=== PATIENT | female | born 1965 | race Caucasian/White ===

== ENCOUNTER → 2017-05-24 | Outpatient (CLI) | payer OTHER | LOC: FIMAGING 13:15 | PROVIDERS: ATTEND Family Medicine | DX: Z12.31 Encounter for screening mammogram for malignant neoplasm of breast (principal) | CPT/HCPCS: G0202 ==

== ENCOUNTER 2017-08-20 13:18 | Emergency (ER) | payer OTHER ==
--- NOTE | 2017-08-20 13:29 | EDPHY ---
H & P Time Seen by Provider: 08/20/17 13:27 HPI/ROS: Chief Complaint: Abdominal pain HPI: A 51-year-old woman presenting with 1 week of intermittent left-sided abdominal pain. He can 7 days ago in the left back. It radiates down to her vagina into her back at times. She was pain-free on Saturday and Saturday became back Saturday. She was seen by diamond powder mixer yesterday and told they thought it was diverticulitis. She has had some increasing urinary urgency. No burning with urination. It does not hurt to move. She has been having a difficult time finding a position of comfort. No fevers or chills. No cough. Some nausea, no vomiting. No diarrhea. ROS: 10 point Review of Systems is negative except as noted in the HPI. PMH: Total abdominal hysterectomy Social History: No smoking, occasional alcohol, no recreational drug use Family History: non-contributory Physical Exam: Gen: Awake, Alert, uncomfortable appearing HEENT: Nose: no rhinorrhea Eyes: PERRLA, EOMI Mouth: Moist mucosa Neck: Supple, no JVD Chest: nontender, lungs clear to auscultation Heart: S1, S2 normal, no murmur Abd: Soft, no reproducible tenderness, no guarding Back: no CVA tenderness, no midline tenderness Ext: no edema, non-tender Skin: no rash Neuro: CN II-XII intact, Sensation grossly intact, Strength 5/5 in bilateral upper and lower extremities Constitutional: Initial Vital Signs Temperature (C) 37.3 C 08/20/17 13:25 Heart Rate 112 H 08/20/17 13:25 Respiratory Rate 20 08/20/17 13:25 Blood Pressure 154/100 H 08/20/17 13:25 O2 Sat (%) 93 08/20/17 13:25 O2 Delivery Mode Room Air Allergies/Adverse Reactions: amoxicillin Allergy (Verified 08/20/17 13:32) Cephalosporins Allergy (Verified 08/20/17 13:32) procaine [From Novocain] Allergy (Verified 08/20/17 13:32) Home Medications: Medication Instructions Recorded Advair Hfa 115-21 Mcg Inhaler 08/20/17 Benadryl 08/20/17 FLUoxetine 08/20/17 Lunesta 08/20/17 Nasacort 08/20/17 PRILOSEC 08/20/17 Sonata 08/20/17 Valtrex 08/20/17 Ventolin Hfa 08/20/17 Medical Decision Making - Diagnostics Imaging Results: CT scan abdomen pelvis without contrast shows a 2.5 mm left UVJ stone with moderate left hydronephrosis. No other findings. Is interpreted by Dr. Blanco Mo. Imaging: Discussed imaging studies w/ call center director Radiologist ED Course/Re-evaluation: Urinalysis is positive for blood. CBC and chemistry are unremarkable. CT scan shows a 2.5 mm left UVJ stone. Patient has gotten relief your with Toradol. She is tolerating p. o.. Will discharge with follow-up with primary care physician. - Data Points Laboratory Results: Laboratory Results 08/20/17 13:50 08/20/17 13:50 08/20/17 08/20/17 08/20/17 14:15 13:50 13:50 WBC 9.75 10^3/uL H 10^3/uL (3.80-9.50) RBC 4.82 10^6/uL 10^6/uL (4.18-5.33) Hgb 14.8 g/dL g/dL (12.6-16.3) Hct 42.2 % % (38.0-47.0) MCV 87.6 fL fL (81.5-99.8) MCH 30.7 pg pg (27.9-34.1) MCHC 35.1 g/dL g/dL (32.4-36.7) RDW 12.7 % % (11.5-15.2) Plt Count 223 10^3/uL 10^3/uL (150-400) MPV 10.1 fL fL (8.7-11.7) Neut % (Auto) 66.0 % % (39.3-74.2) Lymph % (Auto) 25.1 % % (15.0-45.0) [place] % (Auto) 6.5 % % (4.5-13.0) Eos % (Auto) 1.3 % % (0.6-7.6) Baso % (Auto) 0.7 % % (0.3-1.7) Nucleat RBC Rel Count 0.0 % % (0.0-0.2) Absolute Neuts (auto) 6.43 10^3/uL 10^3/uL (1.70-6.50) Absolute Lymphs (auto) 2.45 10^3/uL 10^3/uL (1.00-3.00) Absolute Monos (auto) 0.63 10^3/uL 10^3/uL (0.30-0.80) Absolute Eos (auto) 0.13 10^3/uL 10^3/uL (0.03-0.40) Absolute Basos (auto) 0.07 10^3/uL 10^3/uL (0.02-0.10) Absolute Nucleated RBC 0.00 10^3/uL 10^3/uL (0-0.01) Immature Gran % 0.4 % % (0.0-1.1) Immature Gran # 0.04 10^3/uL 10^3/uL (0.00-0.10) Sodium 140 mEq/L mEq/L (134-144) Potassium 4.0 mEq/L mEq/L (3.5-5.2) Chloride 105 mEq/L mEq/L (97-110) Carbon Dioxide 23 mEq/l mEq/l (22-31) Anion Gap 12 mEq/L mEq/L (8-16) BUN 9 mg/dL mg/dL (7-23) Creatinine 1.2 mg/dL H mg/dL (0.6-1.0) Estimated GFR 47 Glucose 119 mg/dL H mg/dL (70-100) Calcium 10.0 mg/dL mg/dL (8.5-10.4) Total Bilirubin 1.0 mg/dL mg/dL (0.1-1.4) AST 25 IU/L IU/L (14-46) ALT 37 IU/L IU/L (9-52) Alkaline Phosphatase 76 IU/L IU/L (38-126) Total Protein 7.8 g/dL g/dL (6.3-8.2) Albumin 4.4 g/dL g/dL (3.5-5.0) Lipase 325 IU/L H IU/L (23-300) Urine Color YELLOW Urine Appearance HAZY Urine pH 5.5 (5.0-7.5) Ur Specific [place] 1.025 (1.002-1.030) Urine Protein TRACE H (NEGATIVE) Urine Ketones TRACE H (NEGATIVE) Urine Blood 3+ H (NEGATIVE) Urine Nitrate NEGATIVE (NEGATIVE) Urine Bilirubin NEGATIVE (NEGATIVE) Urine Urobilinogen 0.2 EU EU (0.2-1.0) Ur Leukocyte Esterase NEGATIVE (NEGATIVE) Urine RBC Pending Urine WBC Pending Ur Epithelial Cells Pending Urine Glucose NEGATIVE (NEGATIVE) Medications Given: Discontinued Medications Fentanyl (Sublimaze) 50 mcg IVP EDNOW ONE Stop: 08/20/17 13:45 Last Admin: 08/20/17 13:51 Dose: 50 mcg Sodium Chloride (Ns) 1,000 mls @ 0 mls/hr IV ONCE ONE; Wide Open PRN Reason: Protocol Stop: 08/20/17 13:45 Last Admin: 08/20/17 13:51 Dose: 1,000 mls Ketorolac Tromethamine (Toradol) 15 mg IVP EDNOW ONE Stop: 08/20/17 14:31 Last Admin: 08/20/17 14:36 Dose: 15 mg Ondansetron HCl (Zofran) 4 mg IVP EDNOW ONE Stop: 08/20/17 13:45 Last Admin: 08/20/17 13:51 Dose: 4 mg Departure - Departure Disposition: Home, Routine, Self-Care Clinical Impression: Kidney stone Condition: Good Instructions: Kidney Stones (ED), How to Strain Your Urine (ED) Additional Instructions: May take ibuprofen 600 mg 3 times a day for pain. If you are having breakthrough pain take hydrocodone 1-2 every 4 hours as needed for pain. Strain your urine to collect the stone to take your primary care physician. Follow up with primary care physician in 3-4 days for re-evaluation. Return to the emergency depart for increasing uncontrolled pain, nausea, vomiting, fevers, chills, or any other concerns. Referrals: SETH RUVALCABA [Primary Care Provider] - As per Instructions
[2017-08-20] MEDS ORDERED: NS 1,000 ML IV ONE (13:44)
[2017-08-20] MEDS ORDERED: fentaNYL 100 MCG/2 ML INJ IVP ONE (13:44)
[2017-08-20] MEDS ORDERED: ONDANSETRON 4 MG/2 ML VIAL IVP ONE (13:44)
[2017-08-20 14:01] LABS: % IMMATURE GRANULYOCYTES 0.4 % (0.0-1.1); ABSOLUTE IMMATURE GRANULOCYTES 0.04 10^3/uL (0.00-0.10); ADD DIFF? NO; ADD MORPH? NO; ADD SCAN? NO; ATYPICAL LYMPHOCYTE FLAG 10 (0-99); FRAGMENT RBC FLAG 0 (0-99); HEMATOCRIT 42.2 % (38.0-47.0); HEMOGLOBIN 14.8 g/dL (12.6-16.3); LEFT SHIFT FLG 0 (0-99); LIPEMIA HEMOLYSIS FLAG 90 (0-99); MEAN CELL HEMOGLOBIN 30.7 pg (27.9-34.1); MEAN CELL HEMOGLOBIN CONCENTR. 35.1 g/dL (32.4-36.7); MEAN CELL VOLUME 87.6 fL (81.5-99.8); MEAN PLATELET VOLUME 10.1 fL (8.7-11.7); PLATELET CLUMPS FLAG 0 (0-99); PLATELET COUNT 223 10^3/uL (150-400); RED BLOOD CELL COUNT 4.82 10^6/uL (4.18-5.33); RED CELL DISTRIBUTION WIDTH 12.7 % (11.5-15.2)
[2017-08-20 14:16] LABS: ALBUMIN 4.4 g/dL (3.5-5.0); CREATININE 1.2 mg/dL (0.6-1.0); TOTAL PROTEIN 7.8 g/dL (6.3-8.2)
[2017-08-20 14:25] LABS: COLOR YELLOW; LEUKOCYTE ESTERASE,URINE NEGATIVE (NEGATIVE); NITRITE,URINE NEGATIVE (NEGATIVE); PH,URINE 5.5 (5.0-7.5)
[2017-08-20] MEDS ORDERED: KETOROLAC 15 MG/1 ML SDV IVP ONE (14:30)
[2017-08-20 14:31] VITALS: RESP 18
[2017-08-20] MEDS ORDERED: HYDROCOD/APAP 5/325 PREPACK#6 BTL TAKEHOME ONE (14:53)
[2017-08-20 15:02] LABS: RBC,URINE 15-25 /hpf (0-3)
[2017-08-20 15:04] LABS: MUCUS 2+ /lpf (NONE-1+)
[2017-08-20 15:36] VITALS: BP 148/96; PULSE 98; TEMP 98.2; O2SAT 98
== END 2017-08-20 15:36 | disposition home or self-care (01) ==
LOC: CED 13:18
DX: N20.0 Calculus of kidney (principal); E86.9 Volume depletion, unspecified; Z90.710 Acquired absence of both cervix and uterus
CPT/HCPCS: 74176-PO; 80053-PO; 81003-PO; 81015-PO; 83690-PO; 85025-PO; 96374; J1885; J2405; J3010

== ENCOUNTER → 2018-05-26 | Outpatient (CLI) | payer OTHER | LOC: FIMAGING 09:28 | PROVIDERS: ATTEND Internal Medicine | DX: Z12.31 Encounter for screening mammogram for malignant neoplasm of breast (principal); Z85.3 Personal history of malignant neoplasm of breast; Z80.3 Family history of malignant neoplasm of breast ==

== ENCOUNTER → 2018-12-16 | Outpatient (CLI) | payer OTHER ==
[~2018-12-16] MED LIST: IOPAMIDOL (ISOVUE-300) 100 ML BTL ONE
== END ==
LOC: FIMAGING 11:54
PROVIDERS: ATTEND Internal Medicine
DX: M26.69 Other specified disorders of temporomandibular joint (principal)
CPT/HCPCS: Q9967